=== PATIENT | male | born 1980 | race Caucasian/White ===

== ENCOUNTER 2016-10-26 17:57 | Emergency (ER) | payer BC ==
[~2016-10-26] VITALS: Ht 180.3 cm; Wt 87.4 kg
[2016-10-26] MEDS ORDERED: NAPROSYN500 MG PO (18:59)
[2016-10-26 19:08] VITALS: BP 149/92
== END 2016-10-26 19:09 | disposition home or self-care (01) ==
LOC: EME 17:57 → RME 17:57
DX: S60.221A Contusion of right hand, initial encounter (principal); W20.8XXA Other cause of strike by thrown, projected or falling object, initial encounter; Y99.0 Civilian activity done for income or pay
CPT/HCPCS: 73130; 99281; 99283

== ENCOUNTER 2017-08-29 17:32 | Emergency (ER) | payer BC ==
[~2017-08-29] VITALS: Ht 180.3 cm; Wt 88.4 kg
[~2017-08-29 17:32] MED LIST: NAPROSYN500 MG PO
[2017-08-29 19:17] LABS: HEMATOCRIT 45.4 % (38.0-50.0); HEMOGLOBIN 15.7 G/DL (12.5-16.6); MCH 29.8 PG (29.0-34.0); MCHC 34.6 G/DL (30.0-36.0); MCV 86.1 FL (86-99); PLATELET COUNT 270 K/uL (156-360); RBC DIS.WIDTH-CV 11.9 % (11.8-14.6); RBC DIS.WIDTH-SD 37.5 % (39-53); RED BLOOD COUNT 5.27 M/uL (4.00-5.50); WHITE BLOOD COUNT 8.3 K/uL (4.1-10.2)
[2017-08-29 19:26] LABS: CHLORIDE 108 mEq/L (99-109); SODIUM 140 mEq/L (136-147)
[2017-08-29 19:27] LABS: GLUCOSE 91 mg/dL (70-99)
[2017-08-29 19:31] LABS: CREATININE 0.8 mg/dL (0.6-1.3); GFR ESTIMATE (CALCULATED) > 59 mL/min/ (58.99-99999)
[2017-08-29 19:32] LABS: UREA NITROGEN (BUN) 15 mg/dL (9-23)
[2017-08-29] MEDS ORDERED: VALIUM5 MG PO (20:51)
[2017-08-29 21:06] VITALS: BP 139/84
== END 2017-08-29 21:07 | disposition home or self-care (01) ==
LOC: EME 17:32
PROVIDERS: Physician Assistant Medical
DX: R42 Dizziness and giddiness (principal)
CPT/HCPCS: 80048; 85027; 93005; 99281; 99285; J7030